=== PATIENT | male | born 1970 | race Caucasian/White ===

== ENCOUNTER 2021-01-17 17:26 | Inpatient (IN) | payer OTHER, SELFPAY ==
--- NOTE | ~2021-01-17 | CT_ITS ---
EXAMINATION: CTA brain carotid EXAM DATE: 01/17/2021 18:04 INDICATION: Stroke. TECHNIQUE: Noncontrast head CT. Spiral CTA of the carotid arteries was performed with intravenous i njection 100 cc of Omnipaque 350. Axial, coronal, sagittal reformatted images reviewed. Additional r eformatted images created on dedicated 3-D workstation. NASCET comparable standard used to assess th e degree of arterial stenosis. Spiral CT angiogram cerebral arteries performed with the same intrave nous injection of contrast. Source images of the brain CTA transferred to dedicated workstation for 3 -D rotational image creation. Coronal, sagittal maximum intensity pixel images also reviewed. The d ose-length product (DLP) for this examination was 1120.90 mGy-cm. The exposure was tailored accordi ng to patient size, and iterative reconstruction (ASIR) was used as additional dose reduction techniq ue. Correlation is made to head CT earlier same date. FINDINGS: There is no carotid arteriosclerosis or stenosis. The vertebral arteries are codominant. Ca n't identify the left posterior inferior cerebellar artery, could indicate right artery of Percheron, a normal congenital variant. Otherwise symmetric arborization. There is no carotid or vertebral basi lar arterial dissection or fibromuscular dysplasia. There are no cerebral artery aneurysms. The sagit niko, transverse and sigmoid sinuses enhance normally, no venous sinus thrombosis. Internal cerebral v eins also enhance normally. Moderate apical length is edema and moderate cervical spondylosis. IMPRESSION: 1. No cervical arterial dissection or cerebral artery aneurysm. 2. Only right PICA identified, could be artery of Percheron rather than left PICA occlusion. 3. Bilateral carotid bulb 0% stenosis. Reviewed, dictated and finalized at location A. EO RETINAL SURGEON IMPRESSION: 1. No cervical arterial dissection or cerebral artery aneurysm. 2. Only right PICA identified, could be artery of Percheron rather than left P ICA occlusion. 3. Bilateral carotid bulb 0% stenosis.
--- NOTE | ~2021-01-17 | CT_ITS ---
EXAMINATION: CT brain wo con EXAM DATE: 01/17/2021 17:40 INDICATION: Stroke . TECHNIQUE: Spiral CT of the head was performed without contrast. Axial, coronal and sagittal images were reviewed. The dose-length product (DLP) for this examination was 605.33 mGy-cm. The exposure w as tailored according to patient size, and iterative reconstruction (ASIR) was used as additional dos e reduction technique. Comparison is made to prior examination from 2004. FINDINGS: There is no acute intraparenchymal hemorrhage. No evidence of intraparenchymal brain mass lesion. No evidence of acute infarction. There is no mass effect or midline shift. The ventricles are normal in size. There are no extra-axial collections. There are no acute calvarial fractures. T he orbits are unremarkable. Soft tissue is unremarkable. The visualized sinuses and mastoid air mariana ls are well aerated. IMPRESSION: 1. No acute intracranial findings. As per stroke protocol, I called these results to emergency room, discussed with emergency room charg e nurse at 01/17/2021 17:49 MID TEACHER . Reviewed, dictated and finalized at location A. TEACHER IMPRESSION: 1. No acute intracranial findings. As per stroke protocol, I called these results to emergency room, discussed wit h emergency room charge nurse at 01/17/2021 17:49 MID TEACHER .
--- NOTE | ~2021-01-17 | MR_ITS ---
EXAMINATION: MR brain/brain stem wo/w con EXAM DATE: 01/19/2021 09:04 INDICATION: Seizure. TECHNIQUE: Magnetic resonance imaging (MRI) of the brain/brain stem obtained without contrast. Sagit niko T1, axial diffusion, gradient echo (T2*), T1, T2, FLAIR sequences obtained. Patient was then inj ected with 13 cc intravenous Multihance contrast. Axial and coronal postcontrast T1 weighted sequence s obtained. Correlation is made to CT head from yesterday. FINDINGS: There are no areas of restricted diffusion to suggest acute infarction. There is no acute hemorrhage seen on the T2*, a hemosiderin sensitive sequence. No intraparenchymal brain mass lesion. There is minimal periventricular and subcortical T2/FLAIR signal hyperintensity, nonspecific but pro bably related to small vessel ischemic disease (microangiopathy). There is mild prominence of the s ulci and ventricles related to cerebral atrophy. There are no extra-axial collections. Flow voids are seen in the cerebral arteries on the T2-weighted sequences consistent with their expected patency . The orbits are unremarkable. Soft tissue is unremarkable. IMPRESSION: 1. No acute intracranial findings. 2. Mild age-related findings. Reviewed, dictated and finalized at location A. T PROBATION OFFICER
[2021-01-17 17:30] VITALS: BP 133/78; PULSE 80; RESP 18; TEMP 36.8; O2SAT 99
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
[2021-01-17 18:07] LABS: Glucose Point of Care 108 (65-105)
--- NOTE | 2021-01-17 18:08 | PC.NURSE ---
patient now moving all extremities and has no further slurred speech
[2021-01-17 18:22] LABS: Basophils Percent Auto 0.4 % (0.2-1.2); Eosinophils Absolute Auto 0.1 K/mm3 (0-0.3); Eosinophils Percent Auto 1.5 % (0-4.4); Hematocrit 44.6 % (42.0-52.0); Hemoglobin 15.1 g/dL (14.0-18.0); Immature Granulocyte Absolute 0.01 K/mm3 (0.00-0.031); Immature Granulocyte Percent A 0.2 % (0-0.5); Immature Platelet Fraction Pct 2.6 % (0.9-11.2); Lymphocytes Absolute Auto 0.94 K/mm3 (0.9-3.2); Lymphocytes Percent Auto 20.3 % (18.3-44.2); Mean Corpuscular HGB Conc 33.9 g/dl (32-36); Mean Corpuscular Hemoglobin 33.2 pg (26-34); Mean Platelet Volume 9.1 fl (7.4-10.4); Monocytes Absolute Auto 0.4 K/mm3 (0.1-0.6); Neutrophils Absolute Auto 3.2 K/mm3 (1.3-6.7); Neutrophils Percent Auto 69.6 % (45.5-73.1); Platelet Count Result 146 k/mm3 (150-375); Red Blood Count 4.55 M/mm3 (4.6-6.20); Red Cell Distribution Width 12.5 % (11.5-14.5); White Blood Count 4.6 K/mm3 (4.5-10.0)
[2021-01-17 18:30] LABS: INR 1.1; Prothrombin Time 14.8 Seconds (11.1-14.7)
[2021-01-17 18:31] LABS: Partial Thromboplastin Time 25.5 SECONDS (22.3-36.8)
[2021-01-17 18:32] LABS: Ethanol < 10 mg/dL (<10)
[2021-01-17 18:47] LABS: Alanine Aminotransferase 25 U/L (4-50); Albumin Level 3.3 g/dL (3.5-5.1); Alkaline Phosphatase 49 U/L (38-126); Anion Gap 10 mmol/L (8-16); Aspartate Amino Transferase 34 U/L (17-59); Bilirubin,Total 0.5 mg/dL (0.2-1.3); Blood Urea Nitrogen 11 mg/dL (9-20); Calcium 8.2 mg/dL (8.4-10.2); Carbon Dioxide 20 mmol/L (22-30); Chloride 103 mmol/L (98-107); Estimated CRCL calculation 90 ml/min; Estimated Glomerular Filt Rate > 60; Glucose 97 mg/dL (75-110); Potassium 3.4 mmol/L (3.4-5.0); Sodium 133 mmol/L (137-145)
[2021-01-17 18:55] LABS: Add Urine Microscopic? YES; Appearance Urine Clear (Clear); Bilirubin Urine Negative (Negative); Blood Urine Negative (Negative); Color Urine Yellow (Yellow); Glucose Urine UA Negative (Negative); Ketones Urine Negative (Negative); Leukocyte Esterase Ur Negative LEU/UL (Negative); Mucus Urine Rare /lpf; Nitrate Urine Negative (Negative); Protein Urine 1+ mg/dL (Negative); RBC Urine 0-2 /hpf (0-2); Squamous Epithelial Cell Urine Rare /hpf (Few); Urobilinogen Urine Negative mg/dL (<2.0); WBC Urine 0-3 /hpf
[2021-01-17 18:59] LABS: Troponin I < 0.012 ng/mL (0.000-0.034)
[2021-01-17 19:08] LABS: Amphetamine Screen Urine Negative (Negative); Barbiturate Screen Urine Negative (Negative); Benzodiazepines Screen Urine Positive (Negative); Cannabinoid Screen Urine Positive (Negative); Cocaine Screen Urine Negative (Negative); Methadone Screen Urine Negative (Negative); Opiate Screen Urine Negative (Negative); Phencyclidine Screen Urine Negative (Negative)
[2021-01-17 19:30] LABS: Specific Grav Ur > 1.060 (1.001-1.035)
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
[2021-01-17 19:49] VITALS: BP 148/78; PULSE 78; RESP 18
[2021-01-17 20:51] VITALS: BP 137/69; PULSE 93; RESP 16; TEMP 36.9; O2SAT 99
[2021-01-17 21:12] VITALS: PULSE 97
--- NOTE | 2021-01-17 21:39 | ADMGEN ---
This patient, Vi Nye Jr., was admitted to Medical Room [facility]- at 2039. Patient/family oriented to hospital policies and general routines including ID bracelet, bed and alarms, visiting hours, pain management, procedures, bathroom and other care routines, personal items, smoking policy, room service/diet, and visiting hours. Information on how to activate the Rapid Response Team has been discussed. Patient/Family are encouraged to report perceived risks to care and to ask questions if they do not understand what they are told or what they should do.
[2021-01-17 21:40] VITALS: BMI 19.9
[2021-01-17 21:56] VITALS: BMI 19.9
[2021-01-17] MEDS: THIAMINE HCL 200 MG/2 ML VIAL 100 MG IV PUSH (23:36)
[2021-01-18] VITALS (11 sets, daily range): BP systolic 121–144; BP diastolic 70–85; PULSE 83–114; RESP 12–20; TEMP 36.4–37.1; O2SAT 97–98
[2021-01-18 06:01] LABS: Alanine Aminotransferase 26 U/L (4-50); Albumin Level 3.6 g/dL (3.5-5.1); Alkaline Phosphatase 52 U/L (38-126); Aspartate Amino Transferase 40 U/L (17-59); Bilirubin,Total 0.9 mg/dL (0.2-1.3)
[2021-01-18 06:04] LABS: Basophils Percent Auto 0.3 % (0.2-1.2); Eosinophils Absolute Auto 0.1 K/mm3 (0-0.3); Eosinophils Percent Auto 1.3 % (0-4.4); Hematocrit 45.3 % (42.0-52.0); Hemoglobin 15.3 g/dL (14.0-18.0); Immature Granulocyte Absolute 0.02 K/mm3 (0.00-0.031); Immature Granulocyte Percent A 0.3 % (0-0.5); Immature Platelet Fraction Pct 3.2 % (0.9-11.2); Lymphocytes Absolute Auto 1.72 K/mm3 (0.9-3.2); Lymphocytes Percent Auto 28.1 % (18.3-44.2); Mean Corpuscular HGB Conc 33.8 g/dl (32-36); Mean Corpuscular Hemoglobin 32.1 pg (26-34); Mean Corpuscular Volume 95.2 fl (80-100); Mean Platelet Volume 9.3 fl (7.4-10.4); Monocytes Absolute Auto 0.7 K/mm3 (0.1-0.6); Monocytes Percent Auto 11.4 % (2.6-8.5); Neutrophils Absolute Auto 3.6 K/mm3 (1.3-6.7); Neutrophils Percent Auto 58.6 % (45.5-73.1); Platelet Count Result 137 k/mm3 (150-375); Red Blood Count 4.76 M/mm3 (4.6-6.20); Red Cell Distribution Width 12.2 % (11.5-14.5); White Blood Count 6.1 K/mm3 (4.5-10.0)
[2021-01-18 07:18] LABS: Anion Gap 5 mmol/L (8-16); Blood Urea Nitrogen 9 mg/dL (9-20); Calcium 8.3 mg/dL (8.4-10.2); Carbon Dioxide 25 mmol/L (22-30); Chloride 102 mmol/L (98-107); Estimated CRCL calculation 89 ml/min; Estimated Glomerular Filt Rate > 60; Glucose 87 mg/dL (75-110); Potassium 3.9 mmol/L (3.4-5.0); Sodium 132 mmol/L (137-145)
[2021-01-18] MEDS: FOLIC ACID 1 MG TABLET PO (08:34)
[2021-01-18] MEDS: THERAPEUTIC MULTIVITAMINS/MINERALS TAB (*BKC) 1 TABLET PO (08:34)
[2021-01-18] MEDS: THIAMINE HCL 100 MG TABLET PO (08:34)
[2021-01-18 12:36] LABS: Sodium 130 mmol/L (137-145)
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
--- NOTE | 2021-01-18 15:12 | PM.IMPN ---
Progress Note: A&P Assessment and Plan (1) Seizure: Code(s): R56.9 - Unspecified convulsions Status: Acute Assessment and Plan: He had a witnessed seizure which ceased after receiving Valium. Etiology for his seizure is unclear. He does drink alcohol daily and ethyl alcohol level was <10 upon arrival but denies history of withdrawal symptoms. brain MRI has been ordered EEG will be needed as an outpatient neurology has been consulted and input is appreciated he has been initiated on Keppra 500 mg b.i.d. per neurology. 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 His symptoms resolved shortly thereafter and his symptoms were felt to be more likely related to Saran's paralysis. The stroke team felt this was most likely and there was no indication for transfer to their facility. appreciate neurology evaluation (3) Hyponatremia: Code(s): E87.1 - Hypo-osmolality and hyponatremia Status: Acute Assessment and Plan: Sodium 133 upon presentation. Etiology unclear, may be due to alcohol abuse vs SIADH. Asymptomatic. he received IV fluids and sodium has declined to 130. Monitor sodium levels closely check urine sodium and urine creatinine. IV fluids discontinued (4) Nicotine dependence: Code(s): F17.200 - Nicotine dependence, unspecified, uncomplicated Status: Inactive Assessment and Plan: He reports smoking 1 pack per day. At this time, he reports nicotine craving and wants to smoke. Start nicotine patch smoking cessation encouraged (5) Alcohol abuse: Code(s): F10.10 - Alcohol abuse, uncomplicated Status: Acute Assessment and Plan: He drinks 6 beers daily and has done so for many years. He denies any history of alcohol withdrawal symptoms. CIWA scores have been 0. continue CIWA protocol Ativan p.r.n. CIWA >8 continue thiamine and folic acid supplementation alcohol cessation encouraged Subjective Date/time seen: 01/18/21 15:12 Interval history: date of service: 01/18/2021 Vi Nye is a 50-year-old with history of nicotine dependence and daily alcohol use who is seen in follow-up for seizure. He is feeling very well today. He is having trouble recalling the events of yesterday leading up to hospitalization. At this time, he feels in his usual state of health and has no complaints. He is having nicotine cravings and slightly agitated. He wants to go out and smoke. He denies tremor, hallucinations, shaking, sweating, nausea, vomiting anxiety. He denies headache or body aches. his appetite is diminished. He denies confusion. No shortness breath, cough, chest pain, or palpitations. No abdominal pain, fever, chills, dizziness, or lightheadedness. Review of Systems Review of Systems: All systems reviewed & are unremarkable except as noted in HPI and below Exam Narrative: Exam Narrative: Mr. Nye is an unkempt 50-year-old male who is sitting up in bed. he appears comfortable and is in NARD. HR 90, BP 124/70, R 16, T 98.2?, 97% on room air Neuro: awake, alert and oriented x4, speech clear, CN II-XII intact, strength 5/5 throughout, sensation intact,, bilateral discharging machine operator strength equal, no tremor HEENMT: normocephalic, atraumatic, EOMI, sclerae anicteric, moist oral mucosa, tongue midline, nares patent Neck: supple, no lymphadenopathy Respiratory: clear to auscultation bilaterally, nonlabored breathing Cardio: regular rate, regular rhythm with S1-S2 Abdomen: nondistended, normoactive bowel sounds, soft, nontender to palpation, no rigidity or guarding Extremities: no edema, erythema, cyanosis, clubbing, or tenderness to palpation, DP pulses 2+ bilater
[2021-01-18 16:32] LABS: Creatinine Urine 77.2 mg/dL; Sodium Urine Random 93 meq/L
[2021-01-18] MEDS: levETIRAcetam 500 MG TABLET PO (20:42)
[2021-01-19 02:00] VITALS: BP 127/83; PULSE 86; RESP 16; TEMP 36.3; O2SAT 99
[2021-01-19 05:43] VITALS: BP 124/85; PULSE 88; RESP 16; TEMP 36.4; O2SAT 96
[2021-01-19 05:58] LABS: Anion Gap 2 mmol/L (8-16); Blood Urea Nitrogen 10 mg/dL (9-20); Calcium 8.6 mg/dL (8.4-10.2); Carbon Dioxide 30 mmol/L (22-30); Chloride 101 mmol/L (98-107); Estimated CRCL calculation 89 ml/min; Estimated Glomerular Filt Rate > 60; Glucose 93 mg/dL (75-110); Potassium 4.3 mmol/L (3.4-5.0); Sodium 133 mmol/L (137-145)
[2021-01-19] MEDS: THIAMINE HCL 100 MG TABLET PO (08:18)
[2021-01-19] MEDS: THERAPEUTIC MULTIVITAMINS/MINERALS TAB (*BKC) 1 TABLET PO (08:18)
[2021-01-19] MEDS: NICOTINE (*PBKC) 21 MG PATCH 1 PATCH TRANSDERM (08:18)
[2021-01-19] MEDS: FOLIC ACID 1 MG TABLET PO (08:18)
[2021-01-19] MEDS: levETIRAcetam 500 MG TABLET PO (08:18)
[2021-01-19 10:15] VITALS: BP 106/83; PULSE 108; RESP 16; TEMP 36.8; O2SAT 100
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
== END 2021-01-19 16:09 | disposition home or self-care (01) | DRG 101 ==
LOC: ANHED 19:30 → ANH2MED 01-18 00:25
PROVIDERS: Physician Assistant; Admitting Provider Internal Medicine; Emergency Provider Emergency Medicine; PCP Emergency Medicine; Visit Provider Physician Assistant
DX: R56.9 Unspecified convulsions (principal); E87.1 Hypo-osmolality and hyponatremia; G83.84 Todd's paralysis (postepileptic); F17.200 Nicotine dependence, unspecified, uncomplicated; F10.10 Alcohol abuse, uncomplicated; Z87.820 Personal history of traumatic brain injury
CPT/HCPCS: 36415; 70450; 70496; 70498; 70553; 80048; 80053; 80076; 80307; 81001; 82570; 82948; 83735; 84295; 84300; 84443; 84484; 85025; 85055; 85610; 85730; 99285; A9270; A9577; J3411; Q9967

== ENCOUNTER 2021-01-24 06:38 | Outpatient (CLI) | payer OTHER, SELFPAY ==
--- NOTE | 2021-01-27 09:41 | WPDNEUROLOGY ---
Neurology EEG Report General Information Date of Study: 01/24/21 TEST eeg DIAGNOSIS convulsions CONDITION OF RECORDING awake drowsy and sleep EEG NUMBER [id number] CLINICAL HISTORY patient reported he has had 2 episodes while [address] where he has lost consciousness. No warning signs before and feels fine afterwards. EEG DESCRIPTION Basic resting occipital frequency consists of low-voltage 8 to 10 hertz per second alpha admixed with low-voltage 15 to 21 hertz per second beta. Bilateral symmetrical sleep activity seen during sleep. Hyperventilation not done. Photic stimulation produced normal drive. Non paroxysmal. Nonfocal. Nonlateralizing. IMPRESSION Normal
== END 2021-01-24 06:39 | disposition home or self-care (01) ==
PROVIDERS: PCP Emergency Medicine; Visit Provider Physician Assistant
DX: R56.9 Unspecified convulsions (principal)
CPT/HCPCS: 95816

== ENCOUNTER 2021-04-30 16:09 | Outpatient (CLI) | payer OTHER, SELFPAY ==
[2021-04-30 16:46] LABS: Alanine Aminotransferase 15 U/L (4-50); Albumin Level 3.9 g/dL (3.5-5.1); Alkaline Phosphatase 64 U/L (38-126); Anion Gap 5 mmol/L (8-16); Aspartate Amino Transferase 28 U/L (17-59); Bilirubin,Total 0.5 mg/dL (0.2-1.3); Blood Urea Nitrogen 9 mg/dL (9-20); Carbon Dioxide 29 mmol/L (22-30); Chloride 104 mmol/L (98-107); Cholesterol 140 mg/dL (0-200); Estimated Glomerular Filt Rate > 60; Glucose 104 mg/dL (75-110); HDL Direct 68 mg/dL; Potassium 4.4 mmol/L (3.4-5.0); Sodium 138 mmol/L (137-145); Triglycerides < 30 mg/dL (<150)
[2021-04-30 16:56] LABS: LDL Cholesterol Direct 49 mg/dL
== END 2021-04-30 16:10 | disposition home or self-care (01) ==
LOC: ANHLAB 16:10
PROVIDERS: PCP Emergency Medicine; Visit Provider Emergency Medicine
DX: R53.83 Other fatigue (principal); Z13.220 Encounter for screening for lipoid disorders; Z12.5 Encounter for screening for malignant neoplasm of prostate
CPT/HCPCS: 36415; 80053; 80061; 84153; G0103

== ENCOUNTER 2021-07-27 15:54 | Emergency (ER) | payer OTHER, SELFPAY ==
[2021-07-27 16:03] VITALS: BP 156/90; PULSE 92; RESP 18; TEMP 37.1; O2SAT 99
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
== END 2021-07-27 17:25 | disposition home or self-care (01) ==
LOC: ANHED 17:16
PROVIDERS: Emergency Provider Emergency Medicine; PCP Emergency Medicine
DX: M25.472 Effusion, left ankle (principal); F17.210 Nicotine dependence, cigarettes, uncomplicated
CPT/HCPCS: 99282

== ENCOUNTER 2021-11-13 16:34 | Observation (INO) | payer OTHER, SELFPAY ==
--- NOTE | ~2021-11-13 | CT_ITS ---
EXAMINATION: CT brain wo con DATE: 11/13/2021 23:53 INDICATION: Confusion. Slurred speech. TECHNIQUE: Computed tomography (CT) of the head was performed without intravenous contrast. The dose- length product was 605.33 mGy-cm. Automated exposure control and iterative reconstruction technique w ere employed. COMPARISON: MRI dated 01/19/2021 FINDINGS: Brain parenchymal volume is normal. There are scattered mild periventricular and subcortica l white matter changes, most likely related to small vessel ischemic disease (microangiopathy). No ac [place] intracranial hemorrhage, infarction, mass or mass effect. No ventriculomegaly or midline shift. B asilar cisterns are patent. Paranasal sinuses and mastoids are pneumatized. No depressed skull fractu res. Midline sagittal images are unremarkable. IMPRESSION: 1. No acute intracranial abnormality. 2: Chronic age-related findings. Reviewed, dictated and finalized at location A. [employer] MA[employer]GER
--- NOTE | ~2021-11-13 | XR_ITS ---
EXAMINATION: XR chest 1V portable 11/13/2021 23:35 INDICATION: Transient alteration of awareness PROCEDURE: AP portable chest COMPARISON: 08/30/2005 FINDINGS: The lungs are clear. The lungs are hyperinflated which is consistent with, but not diagnost ic of chronic obstructive pulmonary disease. The cardiomediastinal silhouette is within normal limits . There are no pleural effusions. There is no pneumothorax suspected. IMPRESSION: 1: NO ACUTE CARDIOPULMONARY DISEASE. Reviewed, dictated and finalized at location A. FROM HOME
[2021-11-13 16:38] VITALS: BP 150/110; PULSE 133; RESP 14; TEMP 36.7; O2SAT 100
[2021-11-13 16:49] LABS: Glucose Point of Care 76 mg/dl (65-105)
[2021-11-13 23:27] VITALS: BP 159/119; PULSE 107; RESP 18; O2SAT 98
[2021-11-13 23:29] VITALS: RESP 18
--- NOTE | 2021-11-13 23:30 | PC.NURSE ---
daughter states had headache and vomiting yesterday, bruising noted left elbow and c/o left hip pain, daughter states bruise also on buttock denies any falls or injury
[2021-11-14] VITALS (11 sets, daily range): BP systolic 136–146; BP diastolic 85–106; PULSE 90–120; RESP 15–18; TEMP 36.1–37.1; O2SAT 97–100; BMI 20.4
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
--- NOTE | 2021-11-14 00:20 | ECG_ITS ---
Measurements Intervals Olds Rate: 109 P: 74 PA: 154 QRS: 54 QRSD: 78 T: 74 QT: 317 QTc: 428 Interpretive Statements SINUS TACHYCARDIA ABNORMAL ECG Electronically Signed On 11-14-2021 7:44:18 [employer] by Koby Marsh D.O.
[2021-11-14 00:21] LABS: Add Urine Microscopic? YES; Appearance Urine Clear (Clear); Bilirubin Urine Negative (Negative); Blood Urine 2+ (Negative); Color Urine Yellow (Yellow); Glucose Urine UA Negative (Negative); Ketones Urine 1+ mg/dL (Negative); Leukocyte Esterase Ur Negative LEU/UL (Negative); Nitrate Urine Negative (Negative); Protein Urine Negative (Negative); RBC Urine 0-2 /hpf (0-2); Urobilinogen Urine Negative mg/dL (<2.0); WBC Urine 0-3 /hpf
[2021-11-14 00:27] LABS: INR 1.1; Prothrombin Time 14.1 Seconds (11.1-14.7)
[2021-11-14 00:28] LABS: Partial Thromboplastin Time 27.5 SECONDS (22.3-36.8)
[2021-11-14 00:33] LABS: Alanine Aminotransferase 45 U/L (4-50); Albumin Level 4.9 g/dL (3.5-5.1); Alkaline Phosphatase 67 U/L (38-126); Ammonia < 9 umol/L (9-30); Anion Gap 10 mmol/L (8-16); Aspartate Amino Transferase 178 U/L (17-59); Bilirubin,Total 1.3 mg/dL (0.2-1.3); Blood Urea Nitrogen 12 mg/dL (9-20); Calcium 9.3 mg/dL (8.4-10.2); Carbon Dioxide 24 mmol/L (22-30); Chloride 94 mmol/L (98-107); Estimated CRCL calculation 92 ml/min; Estimated Glomerular Filt Rate > 60; Ethanol < 10 mg/dL (<10); Glucose 82 mg/dL (65-110); Magnesium 2.3 mg/dL (1.6-2.3); Potassium 4.1 mmol/L (3.4-5.0); Sodium 128 mmol/L (137-145)
[2021-11-14 00:33] LABS: Lactic Acid Reflex 1.4 mmol/L (0.7-2.1)
[2021-11-14 00:36] LABS: Basophils Percent Auto 0.4 % (0.2-1.2); Eosinophils Absolute Auto 0.1 K/mm3 (0-0.3); Hemoglobin 17.4 g/dL (14.0-18.0); Immature Granulocyte Absolute 0.02 K/mm3 (0.00-0.031); Immature Granulocyte Percent A 0.3 % (0-0.5); Lymphocytes Absolute Auto 1.95 K/mm3 (0.9-3.2); Lymphocytes Percent Auto 24.8 % (18.3-44.2); Mean Corpuscular HGB Conc 34.8 g/dl (32-36); Mean Corpuscular Volume 97.7 fl (80-100); Mean Platelet Volume 9.3 fl (7.4-10.4); Monocytes Absolute Auto 0.9 K/mm3 (0.1-0.6); Monocytes Percent Auto 10.8 % (2.6-8.5); Neutrophils Absolute Auto 4.9 K/mm3 (1.3-6.7); Neutrophils Percent Auto 62.7 % (45.5-73.1); Platelet Count Result 146 k/mm3 (150-375); Red Blood Count 5.12 M/mm3 (4.6-6.20); White Blood Count 7.9 K/mm3 (4.5-10.0)
[2021-11-14] MEDS: SODIUM CHLORIDE 0.9% IV 1,000 ML 999 ML IV CONT (00:41)
[2021-11-14 00:44] LABS: Troponin I 0.023 ng/mL (0.000-0.034)
[2021-11-14 02:28] LABS: Amphetamine Screen Urine Negative (Negative); Barbiturate Screen Urine Negative (Negative); Benzodiazepines Screen Urine Negative (Negative); Cannabinoid Screen Urine Positive (Negative); Cocaine Screen Urine Negative (Negative); Methadone Screen Urine Negative (Negative); Opiate Screen Urine Negative (Negative); Phencyclidine Screen Urine Negative (Negative)
[2021-11-14] MEDS: LORazepam INJ (*CRX) 2 MG/ML VIAL 1 MG IV PUSH (03:45)
[2021-11-14] MEDS: levETIRAcetam 500MG/NACL 100ML 500 MG/100 ML BAG 400 MG IVPB (03:46)
--- NOTE | 2021-11-14 05:19 | PC.NURSE ---
This patient, Vi Nye Jr., was admitted to [facility] Room 305-01. Patient/family oriented to hospital policies and general routines including ID bracelet, bed and alarms, visiting hours, pain management, procedures, bathroom and other care routines, personal items, smoking policy, room service/diet, and visiting hours. Information on how to activate the Rapid Response Team has been discussed. Patient/Family are encouraged to report perceived risks to care and to ask questions if they do not understand what they are told or what they should do.
[2021-11-14] MEDS: SODIUM CHLORIDE 0.9% IV 1,000 ML 125 ML IV CONT ×2 (05:54→15:06)
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
[2021-11-14] MEDS: chlordiazePOXIDE (*CRX) 25 MG CAPSULE PO (08:52)
[2021-11-14] MEDS: levETIRAcetam 500 MG TABLET PO ×2 (10:32→20:22)
[2021-11-14] MEDS: FOLIC ACID 1 MG TABLET PO (10:32)
[2021-11-14] MEDS: THIAMINE HCL 100 MG TABLET PO (10:32)
[2021-11-14 10:50] LABS: Creatine Kinase 9174 U/L (55-170)
[2021-11-14 10:52] LABS: Creatine Kinase 10896 U/L (55-170)
--- NOTE | 2021-11-14 12:13 | PM.IMPN ---
Progress Note: A&P Assessment and Plan (1) Altered mental status: Qualifiers: Altered mental status type: delirium Qualified Code(s): R41.0 - Disorientation, unspecified Code(s): R41.82 - Altered mental status, unspecified Status: Acute Assessment and Plan: altered mental status has lowered his drinking since past 3 days likely reason his alcohol withdrawal was tachycardic and hypertensive on presentation as well urine drug screen was positive for more 1. Will continue CIWA protocol and put him on Librium. IV hydration along with thiamine and multivitamin. (2) Alcohol abuse: Code(s): F10.10 - Alcohol abuse, uncomplicated Status: Acute (3) Hyponatremia: Code(s): E87.1 - Hypo-osmolality and hyponatremia Status: Acute (4) Seizure: Code(s): R56.9 - Unspecified convulsions Status: Acute Assessment and Plan: Patient is noncompliant with Keppra was given loading dose of Keppra will get EEG (5) Alcohol withdrawal: Code(s): F10.239 - Alcohol dependence with withdrawal, unspecified Status: Acute Assessment and Plan: CIWA protocol Librium (6) Rhabdomyolysis: Code(s): M62.82 - Rhabdomyolysis Status: Acute Assessment and Plan: Probably traumatic concern for seizure activity pending EEG patient is not compliant with his medication continue IV fluid Additional Plan Acute hyponatremia most likely related to dehydration give IV fluid Subjective Date/time seen: 11/14/21 12:13 Interval history: Patient seen and examined Patient presented to the hospital with altered mental status patient had episode of headache that resolved within the past at the ER patient was found to have elevated blood pressure rhabdomyolysis dehydration acute hyponatremia admitted for further evaluation and treatment Patient denies fever headache chest pain I am seeing the patient for: Altered mental status Exam Narrative: Alert Chest no wheeze crackles Abdomen nontender nondistended CVS S1 + S2 Lower extremity edema Objective Data Vital Signs Vital Signs: Vital Signs - 24 hr 11/13/21 16:38 11/13/21 23:27 11/13/21 23:29 Temperature 98.1 F Pulse Rate 133 H 107 H Respiratory Rate 14 18 18 Blood Pressure 150/110 H 159/119 H Pulse Oximetry 100 98 11/14/21 00:48 11/14/21 02:01 11/14/21 03:55 Temperature Pulse Rate 113 H 106 H 114 H Respiratory Rate 15 18 18 Blood Pressure 136/104 H 145/106 H 146/103 H Pulse Oximetry 97 98 98 11/14/21 04:50 11/14/21 06:29 Temperature 98.8 F Pulse Rate 116 H 120 H Respiratory Rate 18 Blood Pressure 139/85 Pulse Oximetry 100 Intake/Output Intake/Output: Intake & Output 11/11/21 11/12/21 11/13/21 11/14/21 23:59 23:59 23:59 23:59 Intake Total 1100 Balance 1100 Meds/Results Medications: Active Medications Generic Name Dose Route Start Last Admin Trade Name Freq PRN Reason Stop Dose Admin Chlordiazepoxide HCl 25 mg 11/14/21 09:00 11/14/21 08:52 Chlordiazepoxide (*Crx) 25 Mg Capsule PO 25 mg DAILY SAL Administration Folic Acid 1 mg 11/14/21 09:00 11/14/21 10:32 Folic Acid 1 Mg Tablet PO 1 mg DAILY SAL Administration Sodium Chloride 1,000 mls @ 125 mls/hr 11/14/21 03:15 11/14/21 05:54 Normal Saline Iv IV CONT 125 mls/hr .Q8H SAL Administration Levetiracetam 500 mg 11/14/21 09:00 11/14/21 10:32 Levetiracetam 500 Mg Tablet PO 500 mg Q12HR SAL Administration Thiamine HCl 100 mg 11/14/21 09:00 11/14/21 10:32 Thiamine Hcl 100 Mg Tablet PO 100 mg QAM SAL Administration Radiology Results: ITS Impressions Chest X-Ray 11/13/21 23:36 IMPRESSION: 1: NO ACUTE CARDIOPULMONARY DISEASE. Head CT 11/13/21 23:56 IMPRESSION: 1. No acute intracranial abnormality. 2: Chronic age-related findings. Labs Labs: Laboratory Results - last 24 hr 11/13/21 11/14/21 11/14/21 16:46 00:00
[2021-11-14] MEDS: NICOTINE (*PBKC) 21 MG PATCH 1 PATCH TRANSDERM (15:06)
[2021-11-15] VITALS: PULSE 76
[2021-11-15] MEDS: SODIUM CHLORIDE 0.9% IV 1,000 ML 125 ML IV CONT (01:47)
--- NOTE | 2021-11-15 02:24 | PC.NURSE ---
0000: During CIWA questions, patient became very irritated. Would not answer questions about place and time because he does not care . Repeatedly asked me to shut lights off and turn off all sounds. Patient's CIWA score is a 6. Will reassess at 0400.
[2021-11-15 04:00] VITALS: PULSE 73
[2021-11-15 06:00] VITALS: BP 125/82; PULSE 83; RESP 18; TEMP 36.3; O2SAT 99
[2021-11-15 06:43] LABS: Creatine Kinase 2873 U/L (55-170)
[2021-11-15] MEDS: NICOTINE (*PBKC) 21 MG PATCH 1 PATCH TRANSDERM (09:48)
[2021-11-15] MEDS: FOLIC ACID 1 MG TABLET PO (09:48)
[2021-11-15] MEDS: levETIRAcetam 500 MG TABLET PO (09:48)
[2021-11-15] MEDS: THIAMINE HCL 100 MG TABLET PO (09:48)
[2021-11-15] MEDS: chlordiazePOXIDE (*CRX) 25 MG CAPSULE PO (09:52)
--- NOTE | 2021-11-15 10:13 | PM.DS ---
DS: Admitting Diagnosis Discharge Date 11/15/2021 Admitting Diagnosis Altered mental status DS: Discharge Diagnosis Discharge Diagnosis (1) Altered mental status: Qualifiers: Altered mental status type: delirium Qualified Code(s): R41.0 - Disorientation, unspecified Code(s): R41.82 - Altered mental status, unspecified Status: Acute Assessment and Plan: altered mental status has lowered his drinking since past 3 days likely reason his alcohol withdrawal was tachycardic and hypertensive on presentation as well urine drug screen was positive marijuana. Patient was treated with IV hydration CIWA protocol his condition has improved patient to follow-up with PCP as outpatient (2) Hyponatremia: Code(s): E87.1 - Hypo-osmolality and hyponatremia Status: Acute Assessment and Plan: most like related to dehydration and alcohol follow-up with PCP as outpatient repeat CMP in 1 week after discharge (3) Seizure: Code(s): R56.9 - Unspecified convulsions Status: Acute Assessment and Plan: Patient is noncompliant with Keppra was given loading dose of Keppra will defer repeat EEG to neurology as outpatient follow-up with Neurology in 1 week (4) Alcohol withdrawal: Code(s): F10.239 - Alcohol dependence with withdrawal, unspecified Status: Acute Assessment and Plan: CIWA protocol Librium (5) Rhabdomyolysis: Code(s): M62.82 - Rhabdomyolysis Status: Acute Assessment and Plan: Probably traumatic concern for seizure activity pending EEG patient is not compliant with his medication continue IV fluid DS: Summary Hospital Course Hospital Course: Patient was admitted to the hospital with altered mental status patient is noncompliant with his seizure medication patient has history of alcohol abuse, patient was found to have hyponatremia and rhabdomyolysis, most likely patient has seizure from alcohol withdrawal was and noncompliance, CT scan of the head was negative patient had a recent CTA of the head was negative less than 10 months ago patient to follow-up with neurology as outpatient, during hospitalization patient was put on CIWA protocol was treated with IV hydration rhabdomyolysis has improved repeat CMP in 1 week No driving until cleared by Neurology or after 6 months Time Spent with Patient Time attestation: Total time spent providing and/or coordinating discharge services: Exam Narrative: Alert Chest no wheeze crackles Abdomen nontender nondistended CVS S1 + S2 Lower extremity edema DS: Data Data Completed and Pending Labs on day of discharge: Labs from last 24 hours 11/15/21 11/14/21 11/14/21 06:11 05:45 00:00 Total Creatine Kinase 2873 H 9174 H 85085 H Discharge Plan Discharge Attending physician on discharge: Marcel Silver M.A. Discharging Clinician: Marcel Silver M.A. Patient Disposition: Home, Self-Care Activity: no driving and other - see discharge instructions Diet: heart healthy Discharge Instructions: You had possible seizure no driving for 6 months follow-up with your PCP and Neurology as outpatient Avoid any activity where loss of consciousness will be of hazard to you or 2 people surrounding you Follow seizure precaution Patient Instructions: Antibiotic Form Stand Alone Forms: General Discharge Information Follow-up/Referrals: Zach Leigh MD [Primary Care Provider] - Stone Dominguez MD [Physician] - (plz call and Make appointment in 1 week) Discharge Medications: New chlordiazepoxide HCl 10 mg capsule 10 mg PO TID PRN (Reason: anxiety) Qty: 10 RF: 0 Continued folic acid 1 mg tablet 1 mg PO DAILY Qty: 90 RF: 3 thiamine HCl (vitamin B1) [Vitamin B-1] 100 mg tablet 100 mg PO QAM Qty: 90 RF: 3 levetiracetam 500 mg tablet 500 mg PO BID RF: 0 Date of admission: 11/14/21 03:14 Primary Care Provider: Zach Leigh Admitting Prov
[2021-11-15 12:35] LABS: Sodium 133 mmol/L (137-145)
[2021-11-19 11:27] LABS: Levetiracetam Keppra 10.1 mcg/mL (12.0-46.0)
== END 2021-11-15 13:20 | disposition home or self-care (01) ==
LOC: ANHED 11-14 03:13 → ANH3MEDSUR 11-14 04:44
PROVIDERS: Admitting Provider Internal Medicine; Emergency Provider Emergency Medicine; PCP Emergency Medicine; Visit Provider Internal Medicine
DX: R41.0 Disorientation, unspecified (principal); M62.82 Rhabdomyolysis; G40.909 Epilepsy, unspecified, not intractable, without status epilepticus; E87.1 Hypo-osmolality and hyponatremia; F17.210 Nicotine dependence, cigarettes, uncomplicated; F10.239 Alcohol dependence with withdrawal, unspecified
CPT/HCPCS: 36415; 70450; 71045; 80053; 80177; 80307; 81001; 82140; 82550; 82948; 83605; 83735; 84295; 84484; 85025; 85610; 85730; 93005; 96360; 96361; 96365; 96374; 96375; 97161; 97165; 99285; A9270; G0378; J1953; J2060; J7030

== ENCOUNTER 2021-11-27 10:53 | Outpatient (CLI) | payer OTHER, SELFPAY ==
[2021-11-27 11:18] LABS: Basophils Percent Auto 0.4 % (0.2-1.2); Eosinophils Absolute Auto 0.1 K/mm3 (0-0.3); Eosinophils Percent Auto 2.1 % (0-4.4); Hemoglobin 15.4 g/dL (14.0-18.0); Immature Granulocyte Absolute 0.01 K/mm3 (0.00-0.031); Immature Granulocyte Percent A 0.2 % (0-0.5); Lymphocytes Absolute Auto 1.59 K/mm3 (0.9-3.2); Lymphocytes Percent Auto 33.8 % (18.3-44.2); Mean Corpuscular HGB Conc 33.5 g/dl (32-36); Mean Corpuscular Hemoglobin 33.9 pg (26-34); Mean Corpuscular Volume 101.3 fl (80-100); Mean Platelet Volume 8.7 fl (7.4-10.4); Monocytes Absolute Auto 0.6 K/mm3 (0.1-0.6); Monocytes Percent Auto 12.1 % (2.6-8.5); Neutrophils Absolute Auto 2.4 K/mm3 (1.3-6.7); Neutrophils Percent Auto 51.4 % (45.5-73.1); Platelet Count Result 183 k/mm3 (150-375); Red Blood Count 4.54 M/mm3 (4.6-6.20); Red Cell Distribution Width 13.2 % (11.5-14.5); White Blood Count 4.7 K/mm3 (4.5-10.0)
[2021-11-27 11:30] LABS: Alanine Aminotransferase 18 U/L (4-50); Alkaline Phosphatase 66 U/L (38-126); Anion Gap 6 mmol/L (8-16); Aspartate Amino Transferase 27 U/L (17-59); Bilirubin,Total 0.3 mg/dL (0.2-1.3); Blood Urea Nitrogen 10 mg/dL (9-20); Calcium 8.8 mg/dL (8.4-10.2); Carbon Dioxide 28 mmol/L (22-30); Chloride 102 mmol/L (98-107); Estimated Glomerular Filt Rate > 60; Glucose 105 mg/dL (65-110); Potassium 4.1 mmol/L (3.4-5.0); Sodium 136 mmol/L (137-145)
[2021-12-03 00:18] LABS: Levetiracetam Keppra 10.9 mcg/mL (12.0-46.0)
== END 2021-11-27 10:54 | disposition home or self-care (01) ==
LOC: ANHLAB 10:56
PROVIDERS: PCP Emergency Medicine; Visit Provider Psychiatry & Neurology Neurology
DX: R56.9 Unspecified convulsions (principal)
CPT/HCPCS: 36415; 80053; 80177; 85025

== ENCOUNTER 2021-12-01 10:24 | Outpatient (CLI) | payer OTHER, SELFPAY ==
--- NOTE | 2021-12-02 10:35 | WPDNEUROLOGY ---
Neurology EEG Report General Information Date of Study: 12/01/21 TEST eeg DIAGNOSIS Seizures CONDITION OF RECORDING awake, drowsy and sleep EEG NUMBER [id number] CLINICAL HISTORY patient reported he had a head injury more than 20 years ago.He was told he would have permanent brain damage but now is having trouble with confusion ,forgetfulness and dizziness EEG DESCRIPTION basic resting occipital frequency consists of medium voltage 8 to 9 hertz per 2nd alpha admixed with low to medium voltage 6 to 7 hertz per 2nd theta during drowsiness. Bilateral symmetrical sleep activity seen during sleep. Hyperventilation not done. Photic stimulation produced normal drive. Non paroxysmal. Nonfocal. Nonlateralizing. IMPRESSION Normal record
== END 2021-12-01 10:25 | disposition home or self-care (01) ==
PROVIDERS: PCP Emergency Medicine; Visit Provider Psychiatry & Neurology Neurology
DX: R56.9 Unspecified convulsions (principal)
CPT/HCPCS: 95816

== ENCOUNTER 2023-05-25 16:34 | Outpatient (CLI) | payer OTHER, SELFPAY ==
[2023-05-25 18:17] LABS: Prostate Specific Antigen 0.8 ng/mL (< OR = 4.0)
[2023-05-29 13:16] LABS: Testosterone Free 71.6 pg/mL (35.0-155.0); Testosterone Total 494 ng/dL (250-1100)
== END 2023-05-25 16:35 | disposition home or self-care (01) ==
LOC: ANHLAB 16:36
PROVIDERS: PCP Emergency Medicine; Visit Provider Emergency Medicine
DX: R79.89 Other specified abnormal findings of blood chemistry (principal); Z12.5 Encounter for screening for malignant neoplasm of prostate
CPT/HCPCS: 36415; 84153; 84402; 84403; G0103

== ENCOUNTER 2025-07-23 07:23 | Outpatient (CLI) | payer MEDICARE, SELFPAY ==
--- OUTSIDE RECORDS SUMMARY | 2025-07-23 07:29 | XMS_ITS | Clinical Summary ---
Author Organization [facility] Address [facility] [place] [address] Care Team Providers Care Business Practices Officer Name Role Phone Unavailable Primary Care Provider Unavailabl e Social History Tobacco Use Types Packs/Day Years Used Date Smoking Tobacco: Never Assessed Sex and Gender Information Value Date Recorded Sex Assigned at Not on file Legal Sex Male 5:05 PM CDT Gender Identity Not on file Sexual Orientation Not on file Plan of Treatment Health Maintenance Due Date Last Done Comments Colorectal Cancer Screening Colonoscopy (10 Years) 1968 Annual Physical 01/26/1971 Hepatitis C 01/26/1986 DTaP, Tdap and Td Vaccines ( 1 - Tdap) 01/26/1987 Hepatitis B Vaccines (1 of 3 - 19+ 3-dose series) 01/26/1987 Pneumococcal Vaccine: 50+ Ye ars (1 of 1 - PCV) 01/26/2018 Zoster Vaccines (1 of 2) 01/26/2018 COVID-19 Vaccine (2023-2 5 season) 2024 Meningococcal B Vaccine Aged Out No l onger eligible based on patient's age to complete this topic Meningococcal Vaccine Aged Out No michael alana eligible based on patient's age to complete this topic RSV Immunizations Under 20 Months Aged Out No longer eligible based on patient's age to complete this topic
[2025-07-23 08:08] LABS: Hematocrit 44.3 % (42.0-52.0); Hemoglobin 14.9 g/dL (14.0-18.0); Immature Granulocyte Percent A 0.2 % (0-0.5); Immature Platelet Fraction Pct 3.8 % (0.9-11.2); Lymphocytes Absolute Auto 1.67 K/mm3 (0.9-3.2); Mean Corpuscular HGB Conc 33.6 g/dl (32-36); Mean Corpuscular Hemoglobin 34.8 pg (26-34); Mean Corpuscular Volume 103.5 fl (80-100); Nucleated Red Blood Cells Absolute Auto 0.000 K/mm3 (0.0-0.012); Nucleated Red Blood Cells Perc 0.0 % (0.0-0.2); Platelet Count Result 84 k/mm3 (150-375); Red Blood Count 4.28 M/mm3 (4.6-6.20); White Blood Count 4.3 K/mm3 (4.5-10.0)
[2025-07-23 08:27] LABS: Schistocytes None Seen
[2025-07-23 08:40] LABS: Alanine Aminotransferase 23 U/L (6-50); Albumin Level 3.6 g/dL (3.5-5.1); Alkaline Phosphatase 60 U/L (38-126); Anion Gap 4 mmol/L (4-12); Aspartate Amino Transferase 33 U/L (17-59); Bilirubin,Total 0.6 mg/dL (0.2-1.3); Blood Urea Nitrogen 8 mg/dL (9-20); Calcium 8.8 mg/dL (8.4-10.2); Carbon Dioxide 28 mmol/L (22-30); Chloride 105 mmol/L (98-107); Estimated Glomerular Filt Rate > 60; Glucose 107 mg/dL (65-110); Potassium 4.2 mmol/L (3.4-5.0); Sodium 137 mmol/L (137-145); Total Protein 6.7 g/dL (6.3-8.2)
[2025-07-23 09:51] LABS: Vitamin B12 197.0 pg/mL (239-931)
== END 2025-07-23 07:24 | disposition home or self-care (01) ==
PROVIDERS: PCP Emergency Medicine; Visit Provider Psychiatry & Neurology Neurology
DX: G40.909 Epilepsy, unspecified, not intractable, without status epilepticus (principal); F10.10 Alcohol abuse, uncomplicated; R41.3 Other amnesia
CPT/HCPCS: 36415; 80053; 80177; 82607; 82746; 83090; 84207; 85025; 85055

== ENCOUNTER 2025-10-10 14:13 | Outpatient (CLI) | payer MEDICARE, SELFPAY ==
--- NOTE | ~2025-10-10 | MR_ITS ---
EXAMINATION: MR brain/brain stem wo con DATE: 10/10/2025 14:58 INDICATION: Seizures and/or injury TECHNIQUE: Magnetic resonance imaging (MRI) of the brain and brainstem was performed without intravenous contrast. COMPARISON: January 19 2021 FINDINGS: Scattered T2 weighted hyperintense foci including mild bilateral periventricular changes, as well as some cortical based changes or lesions including the left parafalcine occipital lobe image 13 series 5, right parafalcine frontoparietal lobe image 20 series 5, and right occipital temporal subcortical U fiber region image 15 series 5. These areas of signal abnormality or lesions are in the cortex or subcortical white matter and do not represent typical chronic microvascular ischemic change. Slight indistinct hyperintense T2-weighted signal also present in the pontine portion of the brainstem. The remainder of the brainstem appears normal. No restricted diffusion or acute ischemia. No hemorrhage. Cerebellum appears normal. Paranasal periorbital and calvarial structures unremarkable. No mass, mass effect or hemorrhage. Signal voids patent at the skull base. IMPRESSION: Bilateral areas of cortical and subcortical T2 weighted hyperintense white matter changes atypical for chronic microvascular ischemic change. Findings could represent sequelae of previous injury, previous embolic phenomenon, or atypical inflammatory/infectious process. Additional sequences postcontrast may provide more beneficial information. Reviewed, dictated and finalized at location A. DHOOD DEVELOPMENT TEACHER IMPRESSION: Bilateral areas of cortical and subcortical T2 weighted hyperintens e white matter changes atypical for chronic microvascular ischemic change. Find ings could represent sequelae of previous injury, previous embolic phenomenon, or atypical inflammatory/infectious process. Additional sequences postcontrast may provide more beneficial information.
--- OUTSIDE RECORDS SUMMARY | 2025-10-10 15:10 | XMS_ITS | Clinical Summary ---
Author Organization [facility] Address [facility] [place] [address] Care Team Providers Care Personal Lines Account Executive Name Role Phone Unavailable Primary Care Provider [...] Vaccines (1 of 2) 01/26/2018 COVID-19 Vaccine (2024-2 6 season) 2025 Influenza Adult (#1) 2025 Hepatitis A Vaccines Aged Out No long er eligible based on patient's age to complete this topic Meningococcal B Vaccine Aged Out No l onger eligible based on patient's age to complete this topic Meningococcal Vaccine Aged Out No michael alana eligible based on patient's age to complete this topic RSV Immunizations Under 20 Months Aged Out No longer eligible based on patient's age to complete this topic
== END 2025-10-10 14:14 | disposition home or self-care (01) ==
PROVIDERS: PCP Emergency Medicine; Visit Provider Psychiatry & Neurology Neurology
DX: R90.82 White matter disease, unspecified (principal); Z87.828 Personal history of other (healed) physical injury and trauma
CPT/HCPCS: 70551

== ENCOUNTER 2025-10-30 16:04 | Outpatient (CLI) | payer MEDICARE, SELFPAY ==
--- NOTE | ~2025-10-30 | US_ITS ---
EXAMINATION: US carotid duplex BI DATE: 10/30/2025 17:23 INDICATION: Carotid artery stenosis TECHNIQUE: Grayscale, color Doppler, and pulsed Doppler images of the cervical carotid arteries were obtained. The degree of vessel stenosis is placed in one of the following categories: normal, <50%, 50-69%, >=70% but less than near- occlusion, near-occlusion, or total occlusion. Note that percent stenosis relative to normal distal artery lumen diameter is indirectly measured from velocity measurements as described by Zhang, et al. Radiology 2003; [id number]:[id number]. COMPARISON: None. FINDINGS: RIGHT: The right common carotid artery (CCA) peak systolic velocity (PSV) is 142 cm/s. The right internal carotid artery (ICA) PSV is 65 cm/s. The right ICA end- diastolic velocity (EDV) is 25 cm/s. The right ICA/CCA PSV ratio is 0.5. Grayscale and color Doppler images yield an estimate of <50% diameter reduction from plaque in the ICA. The external carotid artery (ECA) PSV is 77 cm/s. There is antegrade flow in the right vertebral artery. LEFT: The left CCA PSV is 93 cm/s. The left ICA PSV is 63 cm/s. The left ICA EDV is 24 cm/s. The left ICA/CCA PSV ratio is 0.7. Grayscale and color Doppler images yield an estimate of <50% diameter reduction from plaque in the ICA. The ECA PSV is 76 cm/s. There is antegrade flow in the left vertebral artery. IMPRESSION: 1. <50% stenosis from minimal plaque in the right internal carotid artery. 2. <50% stenosis from minimal plaque in the left internal carotid artery. Reviewed, dictated and finalized at location A. DING ROOM FIXER
--- OUTSIDE RECORDS SUMMARY | 2025-10-30 16:56 | XMS_ITS | Clinical Summary ---
Author Organization [facility] Address [facility] [place] [address] Care Team Providers Care Glove Examiner Name Role Phone Unavailable Primary Care Provider [...]
== END 2025-10-30 16:05 | disposition home or self-care (01) ==
PROVIDERS: PCP Emergency Medicine; Visit Provider Psychiatry & Neurology Neurology
DX: I65.23 Occlusion and stenosis of bilateral carotid arteries (principal)
CPT/HCPCS: 93880